=== PATIENT | male | born 1990 | race Caucasian/White ===

== ENCOUNTER 2018-07-03 19:31 | Emergency (ER) | payer BC ==
[2018-07-03 19:41] VITALS: BP 117/61; TEMP 99.7
[2018-07-03] MEDS ORDERED: CLEOCIN HCL300 MG PO (21:14)
[2018-07-03] MEDS ORDERED: ZOFRAN ODT4 MG PO (21:14)
[2018-07-03 21:24] VITALS: PULSE 92
== END 2018-07-03 21:25 | disposition home or self-care (01) ==
LOC: COL.ER 19:31
DX: J03.91 Acute recurrent tonsillitis, unspecified (principal)